=== PATIENT | female | born 1945 | race Caucasian/White ===

== ENCOUNTER 2017-04-06 08:22 | Inpatient (IN) | payer MEDICARE ==
[~2017-04-06] VITALS: Ht 161.3 cm; Wt 92.2 kg
[~2017-04-06 08:22] MED LIST: BACITRACIN 50,000 UNIT ONE; DOCU-180 PO; DULO60CA7 PO; FEXO60TA24 PO; LEVO75TA5 PO; METF500T4 PO; METO-95 PO; MULT1TAB60 PO; PANT20TA3 PO; POLY17PO5 PO; SIMV20TA3 PO; TRAM100T3 PO; TRANEXAMIC ACID 100 MG/ML, 10ML ONE; TRAZ50TA18 PO; TRIA1CAP PO
[2017-04-06] MEDS ORDERED: LACTATED RINGERS 1,000 ML IV SCH (09:41)
[2017-04-06] MEDS ORDERED: SULF1TAB24 PO (09:46)
[2017-04-06] MEDS ORDERED: LIDOCAINE 1%, 2ML ONE (09:51)
[2017-04-06] MEDS ORDERED: LIDOCAINE 1%, 2ML SQ PRN (10:00)
[2017-04-06] MEDS ORDERED: VANCOMYCIN 1,800 MG in SODIUM CHLORIDE 0.9% 500 ML IV ONE (10:00)
[2017-04-06] MEDS ORDERED: VANCOMYCIN PER PHARMACY MC PRN (10:00)
[2017-04-06] MEDS ORDERED: MIDAZOLAM 1 MG/ML, 2ML ONE (10:27)
[2017-04-06] MEDS ORDERED: FENTANYL PF 100 MCG/2ML ONE ×2 (10:27)
[2017-04-06] MEDS ORDERED: PROPOFOL 10 MG/ML, 20ML ONE (11:44)
[2017-04-06] MEDS ORDERED: SUCCINYLCHOLINE 20 MG/ML, 10ML ONE (11:44)
[2017-04-06] MEDS ORDERED: ONDANSETRON 2MG/ML, 2ML ONE (11:44)
[2017-04-06] MEDS ORDERED: DEXAMETHASONE 4 MG/ML, 1ML ONE (11:44)
[2017-04-06] MEDS ORDERED: OXYcodone 5 MG/5 ML ORAL.SOL UDC PO PRN (12:00)
[2017-04-06] MEDS ORDERED: PROMETHAZINE 25 MG/ML, 1ML IV PRN (12:00)
[2017-04-06] MEDS ORDERED: HYDROcodone/APAP 7.5-325MG/15ML UDC PO PRN (12:00)
[2017-04-06] MEDS ORDERED: hydrALAzine 20 MG/ML, 1ML IV PRN (12:00)
[2017-04-06] MEDS ORDERED: FENTANYL PF 100 MCG/2ML IV PRN (12:00)
[2017-04-06] MEDS ORDERED: ACETAMINOPHEN 325 MG TABLET PO PRN (12:00)
[2017-04-06] MEDS ORDERED: ONDANSETRON 2MG/ML, 2ML IVPush PRN ×2 (12:00→17:00)
[2017-04-06] MEDS ORDERED: ACETAMINOPHEN 650 MG/20.3 ML UDC ONE (14:28)
[2017-04-06] MEDS ORDERED: HYDROmorphone 1 MG/ML, 1ML ONE ×3 (14:28→15:32)
[2017-04-06] MEDS ORDERED: OXYcodone 5 MG/5 ML ORAL.SOL UDC ONE (14:28)
[2017-04-06] MEDS: HYDROmorphone 1 MG/ML, 1ML IV PRN ×8 (14:32→22:37)
[2017-04-06] MEDS ORDERED: LABETALOL 5MG/ML, 20ML ONE (15:48)
[2017-04-06] MEDS: LABETALOL 5MG/ML, 20ML IV PRN ×2 (15:48→15:58)
[2017-04-06] MEDS ORDERED: TRANEXAMIC ACID 1,000 MG in SODIUM CHLORIDE 0.9% 100 ML IV ONE (16:30)
[2017-04-06] MEDS ORDERED: ZOLPIDEM 5MG TABLET PO PRN (17:00)
[2017-04-06] MEDS ORDERED: OXYcodone IR 5MG TABLET PO PRN (17:00)
[2017-04-06] MEDS ORDERED: PROMETHAZINE 25 MG/ML, 1ML IM PRN (17:00)
[2017-04-06] MEDS ORDERED: MAGNESIUM HYDROXIDE 8%, 30ML UDC PO PRN (17:00)
[2017-04-06] MEDS ORDERED: LORazepam 2 MG/ML, 1ML IV PRN (17:00)
[2017-04-06] MEDS ORDERED: DIPHENHYDRAMINE 25 MG CAPSULE PO PRN (17:00)
[2017-04-06] MEDS ORDERED: PROMETHAZINE 25 MG SUPP PR PRN (17:00)
[2017-04-06] MEDS ORDERED: DIAZEPAM 5 MG TABLET PO PRN (17:00)
[2017-04-06] MEDS ORDERED: LORazepam 1MG TABLET PO PRN (17:00)
[2017-04-06] MEDS ORDERED: ALUMINUM/MAG/SIMETHICONE 30 ML UDC PO PRN (17:00)
[2017-04-06] MEDS ORDERED: SENNA/DOCUSATE TABLET PO PRN (17:00)
[2017-04-06] MEDS ORDERED: SCOPOLAMINE PATCH, 1.5MG PATCH.TD72 TD PRN (17:00)
[2017-04-06] MEDS ORDERED: BISACODYL 10 MG SUPP PR PRN (17:00)
[2017-04-06] MEDS ORDERED: ONDANSETRON ODT 4 MG PO PRN (17:00)
[2017-04-06] MEDS: POTASSIUM CHLORIDE 20 MEQ in D5%-0.45% NACL 1,000 ML IV SCH (17:02)
[2017-04-06] MEDS: CEFAZOLIN PMX 1GM/50ML 50 ML IVPB SCH (18:35)
[2017-04-06] MEDS: ASPIRIN 81 MG TABLET EC PO SCH (18:35)
[2017-04-06 19:14] VITALS: BP 134/81
[2017-04-06] MEDS ORDERED: SIMVASTATIN 20 MG TABLET PO SCH (21:00)
[2017-04-06] MEDS ORDERED: TRAZODONE 50MG TABLET PO SCH (21:00)
[2017-04-06] MEDS: DOCUSATE 100 MG CAPSULE PO SCH (21:54)
[2017-04-06] MEDS: INSULIN REGULAR 100 UNITS/ML, 3ML VIAL SQ-INSULIN SCH (21:54)
[2017-04-06] MEDS: SULFAMETH./TRIMETHOPRIM DS 800MG/160MG TABLET PO SCH (21:54)
[2017-04-06 23:36] VITALS: BP 147/80
[2017-04-07] MEDS: HYDROcodone/APAP 5/325 TABLET PO PRN ×3 (00:17→08:32)
[2017-04-07] MEDS: HYDROmorphone 1 MG/ML, 1ML IV PRN ×2 (01:40→08:45)
[2017-04-07] MEDS: POTASSIUM CHLORIDE 20 MEQ in D5%-0.45% NACL 1,000 ML IV SCH ×2 (03:06→11:22)
[2017-04-07 03:48] VITALS: BP 132/64
[2017-04-07] MEDS: ASPIRIN 81 MG TABLET EC PO SCH (04:27)
[2017-04-07] MEDS ORDERED: METOPROLOL SUCCINATE 100 MG TAB.ER.24H PO SCH (06:00)
[2017-04-07] MEDS ORDERED: LEVOTHYROXINE 75 MCG TABLET PO SCH (06:00)
[2017-04-07 06:10] LABS: HEMOGLOBIN 14.2 g/dL (11.7-16.4)
[2017-04-07] MEDS: CEFAZOLIN PMX 1GM/50ML 50 ML IVPB SCH (06:15)
[2017-04-07 06:18] LABS: BLOOD UREA NITROGEN 14 mg/dL (7-18)
[2017-04-07] MEDS: INSULIN REGULAR 100 UNITS/ML, 3ML VIAL SQ-INSULIN SCH ×2 (06:19→11:22)
[2017-04-07] MEDS ORDERED: PANTOPRAZOLE 20MG TABLET PO SCH (07:30)
[2017-04-07 08:27] VITALS: BP 110/71
[2017-04-07] MEDS: DOCUSATE 100 MG CAPSULE PO SCH (08:33)
[2017-04-07] MEDS: SULFAMETH./TRIMETHOPRIM DS 800MG/160MG TABLET PO SCH (08:34)
[2017-04-07] MEDS ORDERED: LORATADINE 10 MG TABLET PO SCH (09:00)
[2017-04-07] MEDS ORDERED: MULTIVITAMIN 1 TABLET PO SCH (09:00)
[2017-04-07] MEDS ORDERED: DULOXETINE 30 MG CAPSULE.DR PO SCH (09:00)
[2017-04-07 14:00] VITALS: BP 161/88
[2017-04-07] MEDS ORDERED: KETOROLAC 30 MG/1 ML ONE (15:15)
[2017-04-07] MEDS ORDERED: OXYC5CAP2 PO (16:56)
[2017-04-07] MEDS ORDERED: ACET-1600 PO (16:57)
[2017-04-07] MEDS ORDERED: MELO7.5T31 PO (16:57)
[2017-04-07] MEDS ORDERED: DOCU-131 PO (16:58)
[2017-04-07] MEDS ORDERED: ASPI-496 PO (16:58)
[2017-04-07] MEDS ORDERED: KETOROLAC 30 MG/1 ML IV SCH (17:00)
== END 2017-04-07 17:10 | disposition home or self-care (01) | DRG 470 ==
LOC: ORIP 09:11 → 4NOR 16:20 → DCLOUNGE 04-07 16:54
PROVIDERS: ADMIT Orthopaedic Surgery Adult Reconstructive Orthopaedic Surgery; ATTEND Orthopaedic Surgery Adult Reconstructive Orthopaedic Surgery
PROC: 0QPH04Z Removal of Internal Fixation Device from Left Tibia, Open Approach (ICD-10-PCS; 2017-04-06)
PROC: 0SRD0J9 Replacement of Left Knee Joint with Synthetic Substitute, Cemented, Open Approach (ICD-10-PCS; principal; 2017-04-06 11:00)
DX: M17.32 Unilateral post-traumatic osteoarthritis, left knee (principal); E44.0 Moderate protein-calorie malnutrition; S82.102A Unspecified fracture of upper end of left tibia, initial encounter for closed fracture
CPT/HCPCS: 36415; 80048; 82040; 82962; 85014; 85018; C1713; J0690; J1100; J1170; J1815; J1885; J2250; J2405; J2550; J2704; J3010; J3370; J3480; J3490; C1776; J0330; J7040; J7120

== ENCOUNTER → 2019-11-24 | Outpatient (CLI) | payer MEDICARE ==
[~2019-11-24] MED LIST changes: +ACET-1600 PO; +ASPI-496 PO; -BACITRACIN 50,000 UNIT ONE; +DOCU-131 PO; +MELO7.5T31 PO; +METF500T17 PO; -METF500T4 PO; +OXYC5CAP2 PO; +SIMV20TA19 PO; -SIMV20TA3 PO; +SULF1TAB24 PO; -TRANEXAMIC ACID 100 MG/ML, 10ML ONE; -TRAZ50TA18 PO; +TRAZ50TA66 PO
== END | disposition home or self-care (01) ==
LOC: RAD 07:43
PROVIDERS: ATTEND Thoracic Surgery (Cardiothoracic Vascular Surgery)
DX: K21.9 Gastro-esophageal reflux disease without esophagitis (principal); E66.01 Morbid (severe) obesity due to excess calories; I10 Essential (primary) hypertension; E78.00 Pure hypercholesterolemia, unspecified; E03.9 Hypothyroidism, unspecified; E11.9 Type 2 diabetes mellitus without complications; E78.5 Hyperlipidemia, unspecified
CPT/HCPCS: 74240

== ENCOUNTER → 2019-12-05 | Outpatient (CLI) | payer MEDICARE | END | disposition home or self-care (01) | LOC: RAD 16:12 | PROVIDERS: ATTEND Internal Medicine Cardiovascular Disease | DX: K63.89 Other specified diseases of intestine (principal); R14.0 Abdominal distension (gaseous) | CPT/HCPCS: 74021 ==

== ENCOUNTER 2019-12-20 07:43 | Outpatient (CLI) | payer MEDICARE ==
[2019-12-20] MEDS ORDERED: REGADENOSON 0.4 MG/5 ML SYRINGE ONE (11:49)
== END 2019-12-20 23:59 | disposition home or self-care (01) ==
LOC: CFH 07:43
PROVIDERS: ATTEND Internal Medicine
DX: I10 Essential (primary) hypertension (principal); E78.5 Hyperlipidemia, unspecified; E11.9 Type 2 diabetes mellitus without complications
CPT/HCPCS: 78452; 93017; 93306; A9502; J2785

== ENCOUNTER 2019-12-27 08:32 | Emergency (ER) | payer MEDICARE ==
[~2019-12-27] VITALS: Ht 160 cm; Wt 94.9 kg
--- NOTE | 2019-12-27 09:00 | NUR ---
"WOKE UP WITH FEVER/CHILLS (T100), PULSE >90 & SOB", Pt SOB with exertion. Patient in bed with cont potline monitor, spo2, BP q 30 min, side rais up x2, x call light in reach. Pt on 3 L nc. Not in res distress. RR even and unlabored. MD at bedside.
--- NOTE | 2019-12-27 09:03 | NUR ---
pt has an eccho and stress test done here 10 days ago and everything was finr per pt.
--- NOTE | 2019-12-27 09:15 | NUR ---
late entry for 09: report received from JOSE J Shah, this RN assuming care at this time.
[2019-12-27 09:56] LABS: MEAN CORPUSCULAR HEMOGLOBIN 30.9 pg (27.0-34.8); MEAN CORPUSCULAR HGB CONC 33.3 g/dL (32.4-35.8); MEAN CORPUSCULAR VOLUME 92.7 fL (80-100); MEAN PLATELET VOLUME 8.5 fL (7.4-10.4); PLATELET COUNT 132 x10^3/uL (130-400); RED BLOOD COUNT 4.96 x10^6/uL (3.82-5.3); RED CELL DISTRIBUTION WIDTH 14.5 % (9.6-15.2)
[2019-12-27 10:06] LABS: ALANINE AMINOTRANSFERASE 19 U/L (12-78); ALBUMIN 3.1 g/dL (3.4-5.0); ANION GAP 11 mmol/L (5-15); CHLORIDE 106 mmol/L (98-107); CREATININE 0.97 mg/dL (0.55-1.02)
[2019-12-27 10:10] LABS: ALKALINE PHOSPHATASE 56 U/L (45-117); BILIRUBIN,TOTAL 1.1 mg/dL (0.2-1.0); TOTAL PROTEIN 6.8 g/dL (6.4-8.2); TROPONIN I 0.023 ng/mL (0.000-0.045)
--- NOTE | 2019-12-27 10:20 | NUR ---
pt requests straight cath ua, pt reports that she has hx kidney stones and has had left flank pain for last several days. EDMD Sudeep notified, verbal order received for straight cath ua which was obtained maintaining sterile technique. pt a&o, resps even and unlabored, speaking in full sentences without difficulty. all monitors in place. awaiting urine results, cta and dispo.
[2019-12-27 10:41] LABS: BASOPHILS # (AUTO) 0.02 x10^3/uL (0-0.1); BASOPHILS % (AUTO) 0 % (0-1); EOSINOPHILS # (AUTO) 0.01 x10^3/uL (0-0.4); EOSINOPHILS % (AUTO) 0 % (1-7); LYMPHOCYTES # (AUTO) 0.66 x10^3/uL (1-3.4); LYMPHOCYTES % (AUTO) 7 % (22-44); MD SCAN; MONOCYTES # (AUTO) 0.17 x10^3/uL (0.2-0.8); MONOCYTES % (AUTO) 2 % (2-9); NEUTROPHILS % (AUTO) 92 % (42-75)
--- NOTE | 2019-12-27 10:46 | NUR ---
pt a&o, resps even and unlabored. pt able to speak in full sentences without difficulty. pt is sinus tach rate 90's on monitor with no ectopy noted. PIV placed for CTA. CT at bedside to transport to CT at this time.
[2019-12-27 10:48] LABS: MICROSCOPIC INDICATED
[2019-12-27] MEDS ORDERED: POTASSIUM CHLORIDE 20 MEQ TAB.ER.PRT PO ONE (11:00)
[2019-12-27] MEDS ORDERED: OMNIPAQUE 350 MG/ML, 75ML BOTTLE ONE (11:07)
--- NOTE | 2019-12-27 11:09 | NUR ---
pt back from CT at this time, pt a&o, resps even and unlabored, andrean.
[2019-12-27] MEDS ORDERED: CEFTRIAXONE PMX 2GM/50ML 50 ML IV SCH (11:30)
--- NOTE | 2019-12-27 11:58 | NUR ---
THIS RN DISCUSSED ORDERS WITH MD BHATIA, ORDERS RECEIVED FOR BLOOD CX X 2 PRIOR TO IV ABX. US AT BEDSIDE AT THIS TIME.
--- NOTE | 2019-12-27 12:14 | NUR ---
lab at bedside for blood cx.
[2019-12-27] MEDS ORDERED: CEFTRIAXONE PMX 1GM/50ML 0 ML ONE (12:40)
[2019-12-27] MEDS ORDERED: POTASSIUM CHLORIDE 20 MEQ TAB.ER.PRT ONE (12:40)
[2019-12-27] MEDS ORDERED: CEFTRIAXONE PMX 2GM/50ML 50 ML ONE (12:41)
--- NOTE | 2019-12-27 13:00 | NUR ---
LATE ENTRY FOR 1300: BLOOD CX DRAWN X 2, ROCEPHIN GTT INITIATED ON DIALAFLOW. PT A&O, RESPS EVEN AND UNLABORED, NO COMPLAINT AT THIS TIME. PT MEDICATED PER EMAR WITH KDUR, TOLERATED WELL WITH NO S/SX ASPIRATION. AWAITING US RESULTS AND DISPO.
[2019-12-27 13:58] VITALS: BP 106/52
--- NOTE | 2019-12-27 14:00 | NUR ---
LATE ENTRY FOR 1400: IV ROCEPHIN COMPLETE. PT A&O, RESPS EVEN AND UNLABORED. NADN. PIV DC'D WITH TIP INTACT. PT AMBULATORY WITH STEADY GAIT, GIVEN WC ESCORT TO DC DESK. PT GIVEN DC INSTRUCTIONS AND SCRIPT, EDUCATED REGARDING RX FOR OMNICEF. PT VERBALIZES UNDERSTANDING.
== END 2019-12-27 14:01 | disposition home or self-care (01) ==
LOC: ED 10:22
DX: R06.00 Dyspnea, unspecified (principal); R07.89 Other chest pain; R50.9 Fever, unspecified; R00.0 Tachycardia, unspecified
CPT/HCPCS: 36415; 71045; 71275; 76770; 80053; 81001; 83880; 84484; 85025; 87040; 87077; 87086; 93005; 96365; 99285; J0696; Q9967; 87186

== ENCOUNTER → 2020-03-08 | Outpatient (CLI) | payer MEDICARE ==
[~2020-03-08] MED LIST changes: +ACET-76 PO; +ASCO1500 PO; +DSS PO; +GABA300C PO; +GABA600T7 PO; +LACT1CAP35 PO; +LEVO137T3 PO; +LORA-439 PO; +METO-99 PO; +MULT-449 PO; -MULT1TAB60 PO; +ORLI60CA2 PO; +TRAZ150T62 PO
[2020-03-08 14:42] LABS: BASOPHILS # (AUTO) 0.04 x10^3/uL (0-0.1); BASOPHILS % (AUTO) 0 % (0-1); EOSINOPHILS # (AUTO) 0.09 x10^3/uL (0-0.4); EOSINOPHILS % (AUTO) 1 % (1-7); LYMPHOCYTES # (AUTO) 2.14 x10^3/uL (1-3.4); LYMPHOCYTES % (AUTO) 25 % (22-44); MD NO; MEAN CORPUSCULAR HEMOGLOBIN 30.6 pg (27.0-34.8); MEAN CORPUSCULAR HGB CONC 33.1 g/dL (32.4-35.8); MEAN CORPUSCULAR VOLUME 92.5 fL (80-100); MONOCYTES # (AUTO) 0.78 x10^3/uL (0.2-0.8); MONOCYTES % (AUTO) 9 % (2-9); NEUTROPHILS # (AUTO) 5.42 x10^3/uL (1.8-6.8); NEUTROPHILS % (AUTO) 64 % (42-75); PLATELET COUNT 176 x10^3/uL (130-400); RED BLOOD COUNT 5.39 x10^6/uL (3.82-5.3); RED CELL DISTRIBUTION WIDTH 15.1 % (9.6-15.2)
[2020-03-08 14:52] LABS: ALBUMIN 3.7 g/dL (3.4-5.0); ANION GAP 6 mmol/L (5-15); CALCIUM 9.5 mg/dL (8.5-10.1); CHLORIDE 104 mmol/L (98-107); CREATININE 0.93 mg/dL (0.55-1.02); TOTAL IRON BINDING CAPACITY 400 mcg/dL (250-450)
[2020-03-08 15:18] LABS: % IRON SATURATION 22 % (20-55); ALANINE AMINOTRANSFERASE 30 U/L (12-78); ALKALINE PHOSPHATASE 57 U/L (45-117); BILIRUBIN,TOTAL 0.6 mg/dL (0.2-1.0); IRON LEVEL 87 mcg/dL (50-170); PREALBUMIN 25.3 mg/dL (20.0-40.0); TOTAL PROTEIN 7.6 g/dL (6.4-8.2); TRANSFERRIN 331 mg/dL (200-360)
== END | disposition home or self-care (01) ==
LOC: STAR 13:21
PROVIDERS: ATTEND Thoracic Surgery (Cardiothoracic Vascular Surgery)
DX: Z01.818 Encounter for other preprocedural examination (principal); Z11.59 Encounter for screening for other viral diseases
CPT/HCPCS: 36415; 71046; 80053; 82306; 82607; 82728; 83540; 83550; 83970; 84134; 84425; 84466; 85025; 87635; 93005

== ENCOUNTER → 2020-10-07 | Outpatient (CLI) | payer MEDICARE ==
[~2020-10-07] MED LIST changes: -PANT20TA3 PO; +PANT20TA4 PO
== END | disposition home or self-care (01) ==
LOC: STAR 09:50
PROVIDERS: ATTEND Ophthalmology
DX: Z01.810 Encounter for preprocedural cardiovascular examination (principal); Z01.89 Encounter for other specified special examinations; Z01.818 Encounter for other preprocedural examination; R79.1 Abnormal coagulation profile; Z20.822 Contact with and (suspected) exposure to COVID-19
CPT/HCPCS: 93005